=== PATIENT | female | born 1985 | race Caucasian/White ===

== ENCOUNTER 2021-11-04 03:33 | Emergency (ER) | payer MEDICAID ==
[~2021-11-04] VITALS: Ht 172.7 cm; Wt 74.0 kg
[2021-11-04 03:35] VITALS: BP 127/76
[2021-11-04] MEDS ORDERED: KETOROLAC 60MG/2ML VIAL IM ONE (04:00)
[2021-11-04] MEDS ORDERED: ACETAMINOPHEN 325MG TABLET PO ONE (04:45)
== END 2021-11-04 05:21 | disposition home or self-care (01) ==
LOC: ER 03:33
DX: R51.9 Headache, unspecified (principal); F20.9 Schizophrenia, unspecified
CPT/HCPCS: 99283; J1885

== ENCOUNTER 2021-11-05 00:16 | Emergency (ER) | payer MEDICAID ==
[~2021-11-05] VITALS: Ht 167.6 cm; Wt 82.0 kg
[2021-11-05 02:09] LABS: BASOPHILS % 0.2 % (0.0-2.0); EOSINOPHILS % 0.8 % (0.0-5.0); HEMATOCRIT. 39.8 % (36.0-48.0); HEMOGLOBIN. 13.4 g/dL (12.0-16.0); LYMPHOCYTES % 25.5 % (20.0-50.0); MEAN CORPUSCULAR HEMOGLOBIN 29.9 pg (28.0-32.0); MEAN CORPUSCULAR VOLUME 88.7 fL (81.0-99.0); MEAN PLATELET VOLUME 7.6 fl (7.4-10.4); MONOCYTES % 7.3 % (2.0-8.0); NEUTROPHILS % 66.2 % (40.0-76.0); PLATELET 313 x1000/uL (130-400); RED BLOOD CELL COUNT 4.49 mill/uL (4.2-5.4); RED CELL DISTRIBUTION WIDTH 14.1 % (11.6-14.6)
[2021-11-05 02:15] LABS: CHLORIDE 107 mEq/L (98-107)
[2021-11-05 02:19] LABS: *AMPHETAMINES SCREEN URINE NEGATIVE (NEGATIVE); *BARBITURATES SCREEN URINE NEGATIVE (NEGATIVE); *BENZODIAZEPINES SCREEN URINE NEGATIVE (NEGATIVE); *COCAINE SCREEN URINE NEGATIVE (NEGATIVE); CANNABINOID URINE SCREEN NEGATIVE (NEGATIVE); METHADONE URINE SCREEN NEGATIVE (NEGATIVE); OPIATES URINE SCREEN NEGATIVE (NEGATIVE)
[2021-11-05 02:22] LABS: PHENCYCLIDINE URINE SCREEN PRESUMTIVE POSITIVE (NEGATIVE)
[2021-11-05 02:23] LABS: ETHANOL BLOOD < 10 mg/dL
[2021-11-05 02:29] LABS: HCG SCREEN NEGATIVE
[2021-11-05] MEDS ORDERED: LORAZEPAM 1MG TABLET PO ONE (04:00)
[2021-11-05 09:00] VITALS: BP 129/82
== END 2021-11-05 09:19 | disposition left against medical advice (07) ==
LOC: ER 00:16
DX: R45.851 Suicidal ideations (principal); F16.10 Hallucinogen abuse, uncomplicated; R94.31 Abnormal electrocardiogram [ECG] [EKG]; Z59.01 Sheltered homelessness
CPT/HCPCS: 36415; 80053; 80305; 80307; 80320; 80329; 84703; 85025; 93005; 99285; G0480

== ENCOUNTER 2021-11-07 13:47 | Emergency (ER) | payer MEDICAID ==
[~2021-11-07] VITALS: Ht 170.2 cm; Wt 80.0 kg
[2021-11-07 15:44] LABS: BASOPHILS % 0.4 % (0.0-2.0); EOSINOPHILS % 0.6 % (0.0-5.0); HEMATOCRIT. 37.5 % (36.0-48.0); HEMOGLOBIN. 12.6 g/dL (12.0-16.0); LYMPHOCYTES % 32.2 % (20.0-50.0); MEAN CORPUSCULAR HEMOGLOBIN 29.9 pg (28.0-32.0); MEAN CORPUSCULAR VOLUME 88.8 fL (81.0-99.0); MEAN PLATELET VOLUME 7.7 fl (7.4-10.4); NEUTROPHILS % 58.8 % (40.0-76.0); PLATELET 293 x1000/uL (130-400); RED BLOOD CELL COUNT 4.22 mill/uL (4.2-5.4)
[2021-11-07 15:54] LABS: CHLORIDE 107 mEq/L (98-107); HCG SCREEN NEGATIVE
[2021-11-07 16:06] LABS: ETHANOL BLOOD < 10 mg/dL
[2021-11-07] MEDS ORDERED: ARIPIPRAZOLE 5MG TABLET PO ONE (22:00)
[2021-11-07 22:29] LABS: CLARITY URINE CLEAR (CLEAR); COLOR URINE YELLOW (YELLOW); KETONES URINE 1+ (NEGATIVE); LEUKOCYTE ESTERASE URINE 1+ (NEGATIVE); NITRITE URINE NEGATIVE (NEGATIVE); OCCULT BLOOD URINE NEGATIVE (NEGATIVE); PH URINE 5.5 (4.5-8.0); PROTEIN URINE NEGATIVE (NEGATIVE); SPECIFIC GRAVITY URINE 1.021 (1.005-1.030); UROBILINOGEN URINE 0.2 E.U./dL (0.2-1.0)
[2021-11-07 22:41] LABS: *AMPHETAMINES SCREEN URINE NEGATIVE (NEGATIVE); *BARBITURATES SCREEN URINE NEGATIVE (NEGATIVE); *BENZODIAZEPINES SCREEN URINE NEGATIVE (NEGATIVE); *COCAINE SCREEN URINE NEGATIVE (NEGATIVE); CANNABINOID URINE SCREEN NEGATIVE (NEGATIVE); METHADONE URINE SCREEN NEGATIVE (NEGATIVE); OPIATES URINE SCREEN NEGATIVE (NEGATIVE); PHENCYCLIDINE URINE SCREEN NEGATIVE (NEGATIVE)
[2021-11-08] MEDS ORDERED: LORAZEPAM 2MG/ML CPJ IM ONE (00:45)
[2021-11-08 10:54] VITALS: BP 106/66
== END 2021-11-08 11:30 | disposition home or self-care (01) ==
LOC: ER 13:47
DX: R44.0 Auditory hallucinations (principal); Z20.822 Contact with and (suspected) exposure to COVID-19
CPT/HCPCS: 36415; 80053; 80305; 80307; 80320; 80329; 81003; 81025; 84703; 85025; 96372; 99285; C9803; J2060; U0003; U0005; G0480

== ENCOUNTER 2021-11-09 21:49 | Emergency (ER) | payer MEDICAID ==
[~2021-11-09] VITALS: Ht 167.6 cm; Wt 70.0 kg
[2021-11-10 01:28] LABS: BASOPHILS % 0.4 % (0.0-2.0); EOSINOPHILS % 0.9 % (0.0-5.0); HEMATOCRIT. 37.1 % (36.0-48.0); HEMOGLOBIN. 12.6 g/dL (12.0-16.0); LYMPHOCYTES % 37.3 % (20.0-50.0); MEAN CORPUSCULAR VOLUME 88.8 fL (81.0-99.0); MEAN PLATELET VOLUME 7.4 fl (7.4-10.4); MONOCYTES % 8.3 % (2.0-8.0); NEUTROPHILS % 53.1 % (40.0-76.0); PLATELET 309 x1000/uL (130-400); RED BLOOD CELL COUNT 4.18 mill/uL (4.2-5.4)
[2021-11-10 01:37] LABS: CHLORIDE 106 mEq/L (98-107)
[2021-11-10 01:41] LABS: HCG SCREEN NEGATIVE
[2021-11-10 01:47] LABS: ETHANOL BLOOD < 10 mg/dL
[2021-11-10 01:51] LABS: *AMPHETAMINES SCREEN URINE NEGATIVE (NEGATIVE); *BARBITURATES SCREEN URINE NEGATIVE (NEGATIVE); *BENZODIAZEPINES SCREEN URINE NEGATIVE (NEGATIVE); *COCAINE SCREEN URINE NEGATIVE (NEGATIVE); CANNABINOID URINE SCREEN NEGATIVE (NEGATIVE); METHADONE URINE SCREEN NEGATIVE (NEGATIVE); OPIATES URINE SCREEN NEGATIVE (NEGATIVE); PHENCYCLIDINE URINE SCREEN NEGATIVE (NEGATIVE)
[2021-11-10 03:28] VITALS: BP 125/77
== END 2021-11-10 03:38 | disposition home or self-care (01) ==
LOC: ER 21:49
DX: R44.0 Auditory hallucinations (principal); R03.0 Elevated blood-pressure reading, without diagnosis of hypertension
CPT/HCPCS: 36415; 80053; 80305; 80307; 80320; 80329; 84703; 85025; 99283; G0480